=== PATIENT | male | born 1970 ===

== ENCOUNTER → 2018-07-04 12:32 | Outpatient (CLI) | payer BC, SELFPAY ==
--- NOTE | 2018-07-04 | DI.US.S_ITS ---
PROCEDURE: US RENAL COMPLETE INDICATIONS: Cyst of kidney, acquired TECHNIQUE: Real-time scanning was performed of the kidneys and bladder, with image documentation. COMPARISON: [facility], CT, IVP (ABD & PEL WWO CONTRAST), 04/05/2016, 8:35. [facility], US, RENAL COMPLETE, 12/20/2016, 9:58. FINDINGS: Kidneys: Kidneys are normal in size. Right kidney measures 9 .0 cm long; left kidney measures 10.0 cm long. Right renal cortical thickness is 0.9 cm; left renal cortical thickness is 1.3 cm. Renal cortical echotexture is normal. No hydronephrosis or nephrolithiasis. No suspicious solid mass lesions. Large multiseptated left renal peripelvic cyst redemonstrated similar in size measuring 5.0 x 7.2 x 5.1 cm. Bladder: Pre-void bladder volume is 805 mL. Post-void residual is 222 mL. Pre-void images demonstrate no intraluminal masses or stones. On pre-void images, bilateral ureteral jets are noted with color Doppler interrogation. (Of note, ureteral jets may not be detectable in up to 25% of cases due to insufficient differences in specific gravity between ureteral and bladder urine). Miscellaneous: No free pelvic fluid. IMPRESSION: 1. Multiseptated large left renal parapelvic cyst redemonstrated similar to prior examination. 2. 222 cc post void residual. Dictated by: John CARVALHO Interpreted: Elodia Foote MD on 07/04/2018 at 15:21 Approved by: Elodia Foote M.D. on 07/04/2018 at 16:47
== END ==
PROVIDERS: Family Provider Family Medicine; PCP Family Medicine; Visit Provider Family Medicine
DX: N28.1 Cyst of kidney, acquired (principal)
CPT/HCPCS: 76770

== ENCOUNTER → 2020-12-24 08:21 | Outpatient (CLI) | payer BC, SELFPAY ==
[2020-12-24 12:17] LABS: COVID19 -Nasal RAPID Negative (Negative)
== END ==
PROVIDERS: Family Provider Family Medicine; PCP Family Medicine; Referring Provider Nurse Practitioner Family; Visit Provider Nurse Practitioner Family
DX: Z20.822 Contact with and (suspected) exposure to COVID-19 (principal)
CPT/HCPCS: 87635

== ENCOUNTER 2020-12-26 11:58 | Day surgery (SDC) | payer BC, SELFPAY ==
[2020-12-26] VITALS (8 sets, daily range): BP systolic 111–139; BP diastolic 66–96; PULSE 83–109; RESP 8–19; TEMP 36.4–37.2; O2SAT 96–98
--- NOTE | 2020-12-26 | PATH_ITS ---
[facility] Accession Number: [id number] . 01 Material submitted: . PART A: sigmoid colon - SIGMOID COLON POLYP 2MM PART B: sigmoid colon - SIGMOID COLON POLYP 8MM . 02 Diagnosis: A. Sigmoid Colon, Polyp 2 MM, Biopsy: Hyperplastic polyp. . B. Sigmoid Colon, Polyp 8 MM, Biopsy: Tubular adenoma. BFI 12/30/2020 1356 Local . 02 Electronically signed: . Giovanna Hutchison MD, Pathologist NPI- [id number] . 01 Gross description: . Part A: SIGMOID COLON POLYP 2MM: Received in formalin is 1 fragment(s) of winslow, soft tissue measuring 0.4 x 0.4 x 0.2 cm submitted entirely in 1 cassette(s) Part B: SIGMOID COLON POLYP 8MM: Received in formalin are multiple fragment(s) of winslow, soft tissue measuring 2.3 x 0.6 x 0.2 cm in aggregate submitted entirely in 1 cassette(s) /CORRIE 12/27/2020 0452 Local . 02 Pathologist provided ICD-10: D12.5 . 02 CPT . 289811, [id number] Performed at: 01 [facility] [address], [place], [place] [id number] MD Hung Renee MD Phone: [phone] Performed at: 02 [facility] [address] [place], [place] [id number] MD Giovanna Hutchison MD Phone: [phone]
--- NOTE | 2020-12-26 12:06 | P.HP_ITS ---
History of Present Illness History of Present Illness Date Patient Seen: 12/26/20 Time Patient Seen: 12:06 Chief complaint: SCREENING COLONOSCOPY Narrative: 50 Years Old Male seen today for consideration of a screening colonoscopy. There have been no lower GI symptoms suggesting disease such as change in bowel habits, bleeding, abdominal pain or anemia. There's been no family history of colon cancer or colon polyps. Overall health issues have been stable, including no major cardiac events for at least 6 weeks. Past Medical History: Renal failure, mild URINARY RETENTION Renal cyst, left Reflux esophagitis Prostate cancer, followed by urology Elevated creatinine HYPERLIPIDEMIA AZOTEMIA HYPERTENSION ECZEMA Past Surgical History: Prostate biopsy [place] teeth Family History: Father: Prostate Cancer, CVA, Hypertension, Thyroid Disease Mother: Thyroid Cancer, colon polyps Siblings: Sister 12 years older, stage 4 lung cancer, possible heart issues. Brother, no contact. Social History: Marital Status: Children: 2 Occupation: [employer] Analyst Household Members: 4 Education: College BS oldest son with autism. emotional dificulties Meds Home Medications and Allergies Home Medications Medication Instructions Recorded Confirmed Type amlodipine 10 mg-valsartan 320 mg tab 12/26/20 History tablet atorvastatin 40 mg tablet mg 12/26/20 History metoprolol succinate 25 mg mg PO 12/26/20 History tablet,extended release 24 hr Allergies Allergy/AdvReac Type Severity Reaction Status Date / Time No Known Drug Allergies Allergy Verified 12/26/20 12:26 Review of Systems Review of Systems Narrative: See HPI. Exam Narrative Exam Narrative: GENERAL: Alert and oriented, appearing stated age and in no acute distress. HEENT: Head normocephalic/atraumatic. LUNGS: Clear to ausculation bilaterally, no wheezes, rhonchi or rales. CV: Normal S1 and S2 with regular rate and rhythm, no audible murmurs, rubs or gallops. ABDOMEN: Soft, non-tender, non-distended, no organomegaly. Positive bowel sounds. EXTREMITIES: No clubbing, cyanosis, or edema. NEURO: Cranial nerves II through XII grossly intact, no focal deficits. PSYCH: Alert and oriented x 3. SKIN: No concerning lesions. Assessment & Plan Assessment & Plan narrative: 1. Screening for colon cancer Plan for colonoscopy. The nature and character of the procedure as well as anticipated results were discussed. The possibility of not completing the procedure was also discussed. Possible complications including aspiration pneumonia, bleeding, perforation and reaction to medications either for sedation or preparation and missed lesions were discussed. Questions were answered and proceeding to the colonoscopy was elected. Informed consent signed. I sincerely appreciate the referral allowing me to participate in this patient's care. Please contact me with any questions or concerns. Time Spent With Patient Critical Care time: I spent a total of [] minutes of critical care time on this patient's care today; this time is exclusive of procedural time.
--- NOTE | 2020-12-26 12:10 | PM.OP.COLON ---
Operative Date/Time/Diagnoses Date of procedure: 12/26/20 Procedure Notes SCOAP/Timeout: 1:02 p.m. Procedure in detail: ENDOSCOPIST: Maryuri Chavarria MD Sedation RN: Cristine Larkin RN Sedation start time: 1:03 p.m. Sedation end time: 1:34 p.m. PROCEDURE: Colonoscopy with cold snare and methylene blue lift INDICATIONS: 1. Screening for colon cancer MEDICATION: Levsin 0.125 mg sublingual, incremental doses of Versed and fentanyl until appropriate level sedation achieved. ASA CLASS: 2 CECAL WITHDRAWAL TIME: 22 minutes COMPLICATIONS: None. EXTENT OF PROCEDURE: Cecum. QUALITY OF PREP: Good with portions of liquid stool. PROCEDURE: Prior to insertion of the colonoscope, a digital rectal examination was accomplished with circumferential palpation of the distal rectal mucosa without significant findings being noted. The high-definition colonoscope was passed into the rectum in the usual fashion and advanced over to the cecum without difficulty. The ileocecal valve, appendiceal stoma, and medial wall all could be inspected and no abnormalities were seen. ASCENDING COLON: As the colonoscope was withdrawn, care was taken to expose and inspect the haustral folds and no abnormalities were seen. HEPATIC FLEXURE: Normal, no polyps, diverticula or other abnormalities. TRANSVERSE COLON: Normal, no polyps, diverticula or other abnormalities. DESCENDING COLON: Normal, no polyps, diverticula or other abnormalities. SIGMOID COLON: Minor to moderate diverticulosis. Two polyps were seen: a 2 mm polyp removed with cold biopsy forceps and an 8 mm polyp that was lifted with methylene blue and removed with cold snare. Hemoclip placed on the larger polyp site, excellent hemostasis. RECTUM: Normal. J maneuver was produced. There was no significant perianal disease. The J maneuver was broken. The remainder of the rectum was inspected and there was no external hemorrhoid disease. The scope was withdrawn. IMPRESSION: 1. Sigmoid polyp x2, 2 mm polyp removed with cold biopsy forceps. 8 mm polyp lifted with methylene blue and removed with cold snare, hemoclip placed x1 2. Sigmoid diverticulosis, mild to moderate PLAN: 1. Follow-up in clinic status post pathology results. The possibility of a missed lesion including a malignancy has been discussed with the patient previously. Potential alarm symptoms have been discussed and should be reported immediately.
[2020-12-26] MEDS: LACTATED RINGERS 1,000 ML 200 ML IV (12:30)
[2020-12-26] MEDS: HYOSCYAMINE 0.125 MG TABLET PO (12:42)
[2020-12-26] MEDS: fentaNYL 250 MCG/5 ML INJ IV (13:03)
[2020-12-26] MEDS: MIDAZOLAM 5 MG/5 ML VIAL IV (13:06)
[2020-12-26] MEDS: METHYLENE BLUE 50 MG/10 ML VIAL INJ (13:20)
--- NOTE | 2020-12-26 14:31 | SUR.PHASEII ---
Pt given discharge instructions. pt states he understands discharge instructions. pt denies nausea and pain. No complaints voiced. Pt to be discharged with .
== END 2020-12-26 14:34 | disposition home or self-care (01) ==
PROVIDERS: Family Provider Family Medicine; PCP Family Medicine; Referring Provider Student in an Organized Health Care Education/Training Program; Visit Provider Student in an Organized Health Care Education/Training Program
PROC: 0DJD8ZZ Inspection of Lower Intestinal Tract, Via Natural or Artificial Opening Endoscopic (ICD-10-PCS; CPT 45378; principal; 2020-12-26 13:00)
DX: Z12.11 Encounter for screening for malignant neoplasm of colon (principal); K57.30 Diverticulosis of large intestine without perforation or abscess without bleeding; C61 Malignant neoplasm of prostate; I12.9 Hypertensive chronic kidney disease with stage 1 through stage 4 chronic kidney disease, or unspecified chronic kidney disease; N18.9 Chronic kidney disease, unspecified; E78.5 Hyperlipidemia, unspecified; D12.5 Benign neoplasm of sigmoid colon
CPT/HCPCS: 45385; 45381; J2250; J3010; Q9968